=== PATIENT | male | born 1995 | race Caucasian/White ===

== ENCOUNTER → 2017-05-29 | Emergency (ER) | payer OTHER | END | disposition home or self-care (01) | LOC: FTE 04:35 | DX: J20.9 Acute bronchitis, unspecified (principal) | CPT/HCPCS: 99284; Z7502 ==

== ENCOUNTER 2017-05-30 06:38 | Inpatient (IN) | payer OTHER ==
[2017-05-30] MEDS: LEVALBUTEROL (NEB) 1.25 MG/0.5 ML AMP HHN (09:12)
[2017-05-30] MEDS: IPRATROPIUM (NEB) 0.5 MG/2.5 ML AMP HHN (09:12)
[2017-05-30 10:41] LABS: ADD MAN DIFF? NO
[2017-05-30 10:44] LABS: ABNORMAL IP MESSAGE 1; BASOPHILS % 0.2 % (0.0-2.0); EOSINOPHILS % 0.2 % (0.0-7.0); HEMOGLOBIN 15.3 g/dl (14.0-18.0); LYMPHOCYTES # 0.6 10^3/ul (0.8-2.9); LYMPHOCYTES % 4.9 % (18.0-55.0); MEAN CORPUSCULAR HEMOGLOBIN 29.8 pg (29.0-33.0); MEAN CORPUSCULAR HGB CONC 34.8 g/dl (32.0-37.0); MEAN CORPUSCULAR VOLUME 85.6 fl (72.0-104.0); MEAN PLATELET VOLUME 10.6 fl (7.4-10.4); MONOCYTE # 0.5 10^3/ul (0.3-0.9); MONOCYTES % 4.1 % (0.0-13.0); NEUTROPHIL # 10.3 10^3/ul (1.6-7.5); NEUTROPHILS % 90.2 % (30.0-74.0); PLATELET COUNT 290 10^3/UL (140-415); POSITIVE DIFF @See below; RED BLOOD COUNT 5.14 10^6/ul (4.70-6.10)
[2017-05-30 10:44] LABS: WHITE BLOOD COUNT 11.3 10^3/ul (4.8-10.8)
[2017-05-30 11:03] LABS: ANION GAP 22 (8-16); BLOOD UREA NITROGEN 11 mg/dl (7-20); CALCIUM 10.1 mg/dl (8.4-10.2); CARBON DIOXIDE 21 mmol/L (21-31); CHLORIDE 105 mmol/L (97-110); CREATININE 0.89 mg/dl (0.61-1.24); GLUCOSE 145 mg/dl (70-220); POTASSIUM 4.4 mmol/L (3.5-5.1); SODIUM 144 mmol/L (135-144)
[2017-05-30 11:15] LABS: TROPONIN-I < 0.012 ng/ml (0.00-0.12)
[2017-05-30 12:00] LABS: D-DIMER 708.38 ng/ml (<460)
[2017-05-30] MEDS: SOD CHLORIDE 0.9% 100 ML (12:48)
[2017-05-30] MEDS: IOHEXOL 100 ML (12:48)
[2017-05-30] MEDS: IOHEXOL 350MG/ML 50 ML BTL (12:49)
[2017-05-30 13:17] LABS: PROTIME 12.2 Sec (11.9-14.9)
[2017-05-30 13:18] LABS: PARTIAL THROMBOPLASTIN TIME 30.2 Sec (25.0-35.0)
[2017-05-30] MEDS ORDERED: ACETAMINOPHEN 325 MG TAB PO (13:30)
[2017-05-30] MEDS ORDERED: ONDANSETRON 4 MG INJ IV ×2 (13:30→15:30)
[2017-05-30] MEDS: APIXABAN 5 MG TABLET PO ×2 (13:51→21:13)
[2017-05-30] MEDS ORDERED: DOCUSATE SODIUM 100 MG CAP PO (15:30)
[2017-05-30] MEDS ORDERED: NACL 0.9% 3 ML SYG IV (15:30)
[2017-05-30] MEDS: HYDROCODONE/APAP (5/325) TAB PO (15:56)
[2017-05-30] MEDS: ONDANSETRON 4 MG INJ IV (16:43)
[2017-05-30] MEDS: morphine 4 MG/ML VIAL IV (16:43)
[2017-05-30] MEDS ORDERED: morphine 2 MG INJ IV (18:00)
[2017-05-30] MEDS: LEVOFLOXACIN 750MG/D5W (PMX) 150 ML IVPB (21:12)
[2017-05-30] MEDS: ACETAMINOPHEN 325 MG TAB PO (23:22)
[2017-05-31] MEDS: ZOLPIDEM 5 MG TAB PO ×2 (02:25→21:45)
[2017-05-31] MEDS: IBUPROFEN 600 MG TAB PO ×3 (03:53→11:40)
[2017-05-31 08:21] LABS: ADD MAN DIFF? NO
[2017-05-31 08:26] LABS: ABNORMAL IP MESSAGE 1; BASOPHILS % 0.4 % (0.0-2.0); EOSINOPHILS # 0.1 10^3/ul (0.0-0.5); EOSINOPHILS % 0.8 % (0.0-7.0); HEMATOCRIT 42.4 % (42.0-52.0); HEMOGLOBIN 14.6 g/dl (14.0-18.0); LYMPHOCYTES # 0.5 10^3/ul (0.8-2.9); LYMPHOCYTES % 6.7 % (18.0-55.0); MEAN CORPUSCULAR HEMOGLOBIN 29.9 pg (29.0-33.0); MEAN CORPUSCULAR HGB CONC 34.4 g/dl (32.0-37.0); MEAN CORPUSCULAR VOLUME 86.7 fl (72.0-104.0); MONOCYTE # 1.4 10^3/ul (0.3-0.9); MONOCYTES % 17.6 % (0.0-13.0); NEUTROPHIL # 5.8 10^3/ul (1.6-7.5); NEUTROPHILS % 74.1 % (30.0-74.0); PLATELET COUNT 243 10^3/UL (140-415); POSITIVE DIFF @See below; RED BLOOD COUNT 4.89 10^6/ul (4.70-6.10); RED CELL DISTRIBUTION WIDTH 12.6 % (11.5-14.5)
[2017-05-31 08:26] LABS: WHITE BLOOD COUNT 7.9 10^3/ul (4.8-10.8)
[2017-05-31 08:46] LABS: ANION GAP 19 (8-16); BLOOD UREA NITROGEN 14 mg/dl (7-20); CALCIUM 9.7 mg/dl (8.4-10.2); CARBON DIOXIDE 23 mmol/L (21-31); CHLORIDE 102 mmol/L (97-110); CREATININE 1.12 mg/dl (0.61-1.24); GLUCOSE 93 mg/dl (70-220); POTASSIUM 4.4 mmol/L (3.5-5.1); SODIUM 140 mmol/L (135-144)
[2017-05-31 08:49] LABS: MAGNESIUM 1.9 mg/dl (1.7-2.5)
[2017-05-31 08:49] LABS: PHOSPHORUS 5.2 mg/dl (2.5-4.9)
[2017-05-31] MEDS: FAMOTIDINE 20 MG INJ IV ×2 (09:00→20:21)
[2017-05-31] MEDS: APIXABAN 5 MG TABLET PO ×2 (09:32→20:21)
[2017-05-31] MEDS: LEVOFLOXACIN 750MG/D5W (PMX) 150 ML IVPB (20:20)
[2017-06-01] MEDS: APIXABAN 5 MG TABLET PO ×2 (07:46→20:14)
[2017-06-01] MEDS: FAMOTIDINE 20 MG INJ IV ×2 (07:51→20:14)
[2017-06-01] MEDS: ZOLPIDEM 5 MG TAB PO ×2 (10:09→23:40)
[2017-06-01 14:43] LABS: ANA SCREEN NEGATIVE (NEGATIVE)
[2017-06-01] MEDS: LEVOFLOXACIN 750MG/D5W (PMX) 150 ML IVPB (20:14)
[2017-06-01] MEDS: IBUPROFEN 600 MG TAB PO (20:14)
[2017-06-02] MEDS: FAMOTIDINE 20 MG INJ IV ×2 (08:34→20:16)
[2017-06-02] MEDS: APIXABAN 5 MG TABLET PO ×2 (08:34→20:16)
[2017-06-02] MEDS: INFLUENZA VIRUS VACCINE 0.5 ML (DISPENSING) IM* (08:36)
[2017-06-02] MEDS: LEVOFLOXACIN 500 MG TAB PO (20:16)
[2017-06-02] MEDS: IBUPROFEN 600 MG TAB PO (22:46)
[2017-06-03] MEDS: LEVOFLOXACIN 500 MG TAB PO (05:16)
[2017-06-03 08:42] LABS: ADD MAN DIFF? NO
[2017-06-03 08:50] LABS: BASOPHILS % 0.5 % (0.0-2.0); EOSINOPHILS # 0.3 10^3/ul (0.0-0.5); EOSINOPHILS % 5.8 % (0.0-7.0); HEMATOCRIT 41.9 % (42.0-52.0); HEMOGLOBIN 14.6 g/dl (14.0-18.0); LYMPHOCYTES # 2.4 10^3/ul (0.8-2.9); LYMPHOCYTES % 41.9 % (18.0-55.0); MEAN CORPUSCULAR HEMOGLOBIN 30.1 pg (29.0-33.0); MEAN CORPUSCULAR HGB CONC 34.8 g/dl (32.0-37.0); MEAN CORPUSCULAR VOLUME 86.4 fl (72.0-104.0); MEAN PLATELET VOLUME 10.8 fl (7.4-10.4); MONOCYTE # 0.7 10^3/ul (0.3-0.9); NEUTROPHIL # 2.3 10^3/ul (1.6-7.5); NEUTROPHILS % 39.5 % (30.0-74.0); PLATELET COUNT 282 10^3/UL (140-415); RED BLOOD COUNT 4.85 10^6/ul (4.70-6.10); RED CELL DISTRIBUTION WIDTH 12.3 % (11.5-14.5)
[2017-06-03 08:50] LABS: WHITE BLOOD COUNT 5.8 10^3/ul (4.8-10.8)
[2017-06-03] MEDS: FAMOTIDINE 20 MG INJ IV (08:57)
[2017-06-03] MEDS: APIXABAN 5 MG TABLET PO (08:57)
[2017-06-03 09:22] LABS: ANION GAP 19 (8-16); BLOOD UREA NITROGEN 17 mg/dl (7-20); CALCIUM 8.9 mg/dl (8.4-10.2); CARBON DIOXIDE 23 mmol/L (21-31); CHLORIDE 103 mmol/L (97-110); CREATININE 0.94 mg/dl (0.61-1.24); GLUCOSE 83 mg/dl (70-220); POTASSIUM 4.3 mmol/L (3.5-5.1); SODIUM 141 mmol/L (135-144)
[2017-06-04 17:12] LABS: PROTEIN C >200 % normal (70-180)
== END 2017-06-03 18:50 | disposition home or self-care (01) | DRG 195 ==
LOC: TEL 06-01 19:40 → FTE 06:38 → TEL 13:23
PROC: CB121ZZ Planar Nuclear Medicine Imaging of Lungs and Bronchi using Technetium 99m (Tc-99m) (ICD-10-PCS; principal; 2017-06-03)
DX: J09.X2 Influenza due to identified novel influenza A virus with other respiratory manifestations (principal)
CPT/HCPCS: 36415; 71045; 71275; 78582; 80048; 83735; 84100; 84484; 85025; 85302; 85305; 85378; 85610; 85613; 85730; 86038; 87400; 90686; 93005; 93306; 93970; 94664; 96374; 96375; 99285-25

== ENCOUNTER 2019-02-17 09:37 | Emergency (ER) | payer BC, OTHER ==
[2019-02-17] MEDS: KETOROLAC 30 MG INJ IV (10:42)
[2019-02-17] MEDS: SOD CHLORIDE 0.9% 1,000 ML IV ×2 (10:42→12:09)
[2019-02-17] MEDS: morphine 4 MG/ML VIAL IV (11:07)
[2019-02-17] MEDS: ONDANSETRON 4 MG INJ IV (11:53)
[2019-02-17] MEDS: HYDROmorphONE 0.5 MG/0.5 ML SYG IV (11:54)
== END 2019-02-17 14:23 | disposition home or self-care (01) ==
LOC: FTE 09:37
DX: N20.0 Calculus of kidney (principal); J45.909 Unspecified asthma, uncomplicated
CPT/HCPCS: 36415; 74176; 80053; 81001; 83690; 85025; 96361; 96374; 96375; 99285-25